=== PATIENT | female | born 1955 | race Caucasian/White ===

== ENCOUNTER 2016-11-25 06:10 | Day surgery (SDC) | payer OTHER ==
[2016-11-25] MEDS ORDERED: Citric Acid/Sodium Citrate Solution 30 ML Cup ONE (07:24)
[2016-11-25] MEDS ORDERED: Citric Acid/Sodium Citrate Solution 30 ML Cup PO ONE (07:25)
[2016-11-25] MEDS ORDERED: Lactated Ringers 1,000 ML IV SCH (07:45)
[2016-11-25] MEDS ORDERED: Propofol 200 MG/20 ML SDV ONE (07:46)
[2016-11-25] MEDS ORDERED: fentaNYL 100 MCG/2 ML SDV ONE (07:46)
[2016-11-25 08:59] VITALS: BP 104/47
--- NOTE | 2016-11-25 13:42 | OR ---
PREOPERATIVE DIAGNOSIS: Family history of colon cancer and polyps. POSTOPERATIVE DIAGNOSIS: Sigmoid diverticulosis. Otherwise normal exam. PROCEDURE PROPOSED: Total flexible colonoscopy. PROCEDURE DONE: Total flexible colonoscopy. INDICATION: This is a 61-year-old female who comes in for colonic surveillance due to a family history of her mother dying of colon cancer. She has had 2 prior exams and comes in about every 5 years. TECHNIQUE: The patient was brought to the endoscopy suite, placed in left lateral decubitus position. She was sedated per LABEL STITCHER with propofol. The flexible video colonoscope was then passed transanally and under visualization advanced to the cecum. Examination revealed a normal ascending, transverse, descending colon. Sigmoid colon revealed mild diverticulosis and the rectum was normal. The scope was withdrawn. The patient tolerated the procedure well. FINAL IMPRESSION: 1. Sigmoid diverticulosis. Otherwise normal exam. 2. Family history of colon cancer and polyps. PLAN: The patient is reassured. I felt she should continue with colonic surveillance every 5 years hereafter. SCM: 11/25/2016 08:08:58 MODL: 11/25/2016 13:37:41 /[id number]
== END 2016-11-25 09:30 | disposition home or self-care (01) ==
LOC: VM.SDS 06:10
PROVIDERS: ATTEND Surgery
DX: Z12.11 Encounter for screening for malignant neoplasm of colon (principal); K57.30 Diverticulosis of large intestine without perforation or abscess without bleeding; Z88.0 Allergy status to penicillin; Z88.1 Allergy status to other antibiotic agents; Z88.8 Allergy status to other drugs, medicaments and biological substances
CPT/HCPCS: 45378; 82962; A9270; J2704; J3010; J7120

== ENCOUNTER 2017-07-15 15:27 | Emergency (ER) | payer OTHER ==
--- NOTE | 2017-07-15 16:05 | EDM.PDOC ---
ED HPI GENERAL MEDICAL PROBLEM - General Chief Complaint: Genitourinary Problem Stated Complaint: UTI symptoms Time Seen by Provider: 07/15/17 15:29 Source of Information: Reports: Patient, RN, RN Notes Reviewed History Limitations: Reports: No Limitations - History of Present Illness INITIAL COMMENTS - FREE TEXT/NARRATIVE: Patient presents to the ED at [facility] with UTI symptoms. Patient states yesterday she started having dysuria with hematuria. Her symptoms have progressively gotten worse. Today she started having urgency. No abdominal or pelvic pain. No vaginal odor or discharge. Patient states she may only get 1-2 UTI's per year. No recent abx use. No recent cuadra catheter or other instrumentation. No calcium metabolism disorders. Patient states she is trying to stay well hydrated with good PO fluid intake. Onset Date: 07/14/17 - Related Data Allergies Allergy/AdvReac Type Severity Reaction Status Date / Time JIA Inhibitors Allergy Cannot Verified 07/15/17 16:05 Remember cephalexin Allergy Cannot Verified 07/15/17 16:05 Remember Penicillins Allergy Cannot Verified 07/15/17 16:05 Remember Home Meds: Home Meds Acetaminophen [Tylenol Extra Strength] 1 tab PO Q6H PRN 11/22/16 [History] Aspirin [Adult Low Dose Aspirin EC] 81 mg PO DAILY 11/22/16 [History] Calcium Carbonate [Tums] 1 tab PO DAILY PRN 11/22/16 [History] Ferrous Sulfate [Iron] 325 mg PO DAILY 11/22/16 [History] Levothyroxine Sodium 1 tab PO DAILY 11/22/16 [History] Magnesium Oxide [Magnesium] 1 tab PO DAILY 11/22/16 [History] Propylene Glycol/PEG 400/Pf [Systane Ultra 0.4-0.3% Eye Drp] 1 drop EYEBOTH Q4HR PRN 11/22/16 [History] Sertraline [Zoloft] 1 tab PO DAILY 11/22/16 [History] Simvastatin [Simvastatin] 1 tab PO DAILY 11/22/16 [History] Spironolactone [Spironolactone] 1 tab PO DAILY 11/22/16 [History] metFORMIN [Glucophage] 1 tab PO BID 11/22/16 [History] Cholecalciferol (Vitamin D3) [Vitamin D3] 1,000 units PO DAILY 11/25/16 [History ] Ibuprofen [Motrin] 400 mg PO Q6H PRN 11/25/16 [History] Nitrofurantoin Macrocrystal [Macrodantin] 1 tab PO BID 5 Days #10 capsule [Rx] Past Medical History HEENT History: Reports: Other (See Below) Other HEENT History: H/O Corneal injury Cardiovascular History: Reports: High Cholesterol, Hypertension Gastrointestinal History: Reports: GERD Musculoskeletal History: Reports: Osteoporosis Neurological History: Reports: Vertigo, Other (See Below) Other Neuro History: Trigeminal neurology Psychiatric History: Reports: Depression Endocrine/Metabolic History: Reports: Diabetes, Type II, Hypoparathyroidism, Multinodular Thyroid, Other (See Below) Other Endocrine/Metabolic History: Multiple thryoid nodules. Pituitary tumor benign. Rathkes cyst Hematologic History: Reports: Anemia, Iron Deficiency Dermatologic History: Reports: Other (See Below) Other Dermatologic History: Dermatitis - Past Surgical History GI Surgical History: Reports: Colonoscopy Social & Family History - Tobacco Use Smoking Status *Q: Never Smoker - Recreational Drug Use Recreational Drug Use: No ED ROS GENERAL - Review of Systems Review Of Systems: See Below Constitutional: Denies: Fever, Chills Respiratory: Denies: Shortness of Breath, Cough Cardiovascular: Denies: Chest Pain, Palpitations GI/Abdominal: Denies: Abdominal Pain, Nausea, Vomiting : Reports: Dysuria, Hematuria, Urgency Skin: Reports: No Symptoms Neurological: Reports: No Symptoms. Denies: Dizziness, Headache ED EXAM, RENAL/ - Physical Exam Exam: See Below Exam Limited By: No Limitations General Appearance: Alert, No Apparent Distress Respiratory/Chest: No Respiratory Distress, Lungs Clear, Normal Breath Sounds Cardiovascular: Normal Peripheral Pulses, Regular Rate, Rhythm GI/Abdominal: Normal Bowel Sounds, Soft, Non-Tender (Female) Exam: Deferred Neurological: Alert, Oriented Skin Exam: Warm, Dry, Intact, Normal Color, No Rash Course - Vital Signs Last Recorded V/S: Last Vital Signs Temp 35.7 C 07/15/17 16:03 Pulse 63 07/15/17 16:03 Resp 12 07/15/17 16:03 BP 144/54 H 07/15/17 16:03 Pulse Ox 99 07/15/17 16:03 - Orders/Labs/Meds Labs: Laboratory Tests 07/15/17 Range/Units 16:00 Urine Color Yellow (YELLOW) Urine Appearance Slightly cloudy H (CLEAR) Urine pH 6.0 (5.0-8.0) Ur Specific [place] 1.010 Urine Protein Negative (NEGATIVE) mg/dL Urine Glucose (UA) Negative (NEGATIVE) mg/dL Urine Ketones Negative (NEGATIVE) mg/dL Urine Occult Blood Trace-intact H (NEGATIVE) Urine Nitrite Negative (NEGATIVE) Urine Bilirubin Negative (NEGATIVE) Urine Urobilinogen 0.2 (0.2) EU/dL Ur Leukocyte Esterase Moderate H (NEGATIVE) Urine RBC 0-5 (NOT SEEN) /HPF Urine WBC 30-40 H (NOT SEEN) /HPF Ur Squamous Epith Cells Moderate H (NEGATIVE) /HPF Ur Transition Epith Cell Not seen (NEGATIVE) /HPF Ur Renal Epithelial Cell Few H (NEGATIVE) /HPF Urine Bacteria Moderate H (NEGATIVE) /HPF Urine Yeast (Budding) Few Departure - Departure Time of Disposition: 16:19 Disposition: Home, Self-Care 01 Condition: Good Clinical Impression: Urinary tract infection Qualifiers: Urinary tract infection type: acute cystitis Hematuria presence: with hematuria Qualified Code(s): N30.01 - Acute cystitis with hematuria - Discharge Information Prescriptions: Nitrofurantoin Macrocrystal [Macrodantin] 1 tab PO BID 5 Days #10 capsule Instructions: Urinary Tract Infection, Adult Referrals: Meg Willard MD [Primary Care Provider] - Forms: ED Department Discharge Additional Instructions: 1. Stay well hydrated and rest 2. Take antibiotics for the full coarse, even if you are feeling better 3. May try cranberry juice/pills for burning 4. See your Primary as symptoms warrant 5. Call with any questions/concerns - Problem List Review Problem List Initiated/Reviewed/Updated: Yes
[2017-07-15 16:07] VITALS: BP 144/54
[2017-07-15] MEDS ORDERED: Take Home: Nitrofurantoin Monohydrate/Macrocrystalline 100 MG, 2 Cap Pack PO ONE ×2 (16:21→16:25)
== END 2017-07-15 16:35 | disposition home or self-care (01) ==
LOC: VM.ED 15:27
DX: N30.01 Acute cystitis with hematuria (principal); I10 Essential (primary) hypertension; E78.00 Pure hypercholesterolemia, unspecified; E11.9 Type 2 diabetes mellitus without complications; Z88.0 Allergy status to penicillin; Z88.1 Allergy status to other antibiotic agents; Z79.82 Long term (current) use of aspirin; Z79.899 Other long term (current) drug therapy
CPT/HCPCS: 81001; 99283; A9270

== ENCOUNTER 2019-02-08 22:19 | Emergency (ER) | payer OTHER ==
[2019-02-08] MEDS ORDERED: GI Cocktail Oral Solution 30 ML PO ONE (22:45)
[2019-02-08] MEDS ORDERED: Aspirin 81 MG Tab.Chew PO ONE (22:45)
[2019-02-08 23:56] LABS: ANION GAP 13.3 mmol/L (10-20); CHLORIDE,CL 101 mmol/L (98-107); SODIUM,NA 138 mmol/L (136-145)
--- NOTE | 2019-02-08 23:59 | EDM.PDOC ---
ED HPI GENERAL MEDICAL PROBLEM - General Chief Complaint: Cardiovascular Problem Stated Complaint: PAIN IN THROAT AREA Time Seen by Provider: 02/08/19 22:42 Source of Information: Reports: Patient History Limitations: Reports: No Limitations - History of Present Illness INITIAL COMMENTS - FREE TEXT/NARRATIVE: Patient comes in with complaints of bilateral neck and chest pressure. She states this started at around 6 pm. States she had a burger for lunch around 12 noon today and part of a fish sandwich for dinner. Pain has improved before she arrived but states it is a 5/10 presently. Denies shortness of breath, abdominal pain, chills, fever, sweating, blood in urine or stools. No urinary symptoms. No change in LOC, no confusion, dizziness, fatigue. Onset: Today, Sudden Duration: Improving Location: Reports: Neck, Chest Quality: Reports: Burning, Pressure Severity: Moderate - Related Data Allergies Allergy/AdvReac Type Severity Reaction Status Date / Time JIA Inhibitors Allergy Cannot Verified 07/15/17 16:05 Remember cephalexin Allergy Cannot Verified 07/15/17 16:05 Remember Penicillins Allergy Cannot Verified 07/15/17 16:05 Remember Home Meds: Home Meds Acetaminophen [Tylenol Extra Strength] 1 tab PO Q6H PRN 11/22/16 [History] Aspirin [Adult Low Dose Aspirin EC] 81 mg PO DAILY 11/22/16 [History] Calcium Carbonate [Tums] 1 tab PO DAILY PRN 11/22/16 [History] Ferrous Sulfate [Iron] 325 mg PO DAILY 11/22/16 [History] Levothyroxine Sodium 1 tab PO DAILY 11/22/16 [History] Magnesium Oxide [Magnesium] 1 tab PO DAILY 11/22/16 [History] Propylene Glycol/PEG 400/Pf [Systane Ultra 0.4-0.3% Eye Drp] 1 drop EYEBOTH Q4HR PRN 11/22/16 [History] Sertraline [Zoloft] 1 tab PO DAILY 11/22/16 [History] Simvastatin 1 tab PO DAILY 11/22/16 [History] Spironolactone 1 tab PO DAILY 11/22/16 [History] metFORMIN [Glucophage] 1 tab PO BID 11/22/16 [History] Cholecalciferol (Vitamin D3) [Vitamin D3] 1,000 units PO DAILY 11/25/16 [History ] Ibuprofen [Motrin] 400 mg PO Q6H PRN 11/25/16 [History] Nitrofurantoin Macrocrystal [Macrodantin] 1 tab PO BID 5 Days #10 capsule [Rx] Past Medical History HEENT History: Reports: Other (See Below) Other HEENT History: H/O Corneal injury Cardiovascular History: Reports: High Cholesterol, Hypertension Gastrointestinal History: Reports: GERD Musculoskeletal History: Reports: Osteoporosis Neurological History: Reports: Vertigo, Other (See Below) Other Neuro History: Trigeminal neurology Psychiatric History: Reports: Depression Endocrine/Metabolic History: Reports: Diabetes, Type II, Hypoparathyroidism, Multinodular Thyroid, Other (See Below) Other Endocrine/Metabolic History: Multiple thryoid nodules. Pituitary tumor benign. Rathkes cyst Hematologic History: Reports: Anemia, Iron Deficiency Dermatologic History: Reports: Other (See Below) Other Dermatologic History: Dermatitis - Past Surgical History GI Surgical History: Reports: Colonoscopy Social & Family History - Family History Family Medical History: Noncontributory - Caffeine Use Caffeine Use: Reports: None ED ROS GENERAL - Review of Systems Review Of Systems: See Below Constitutional: Reports: No Symptoms HEENT: Reports: Throat Pain Respiratory: Reports: No Symptoms Cardiovascular: Reports: Chest Pain Endocrine: Reports: No Symptoms GI/Abdominal: Reports: No Symptoms : Reports: No Symptoms Musculoskeletal: Reports: No Symptoms Skin: Reports: No Symptoms Neurological: Reports: No Symptoms Psychiatric: Reports: No Symptoms Hematologic/Lymphatic: Reports: No Symptoms Immunologic: Reports: No Symptoms ED EXAM, GENERAL - Physical Exam Exam: See Below Exam Limited By: No Limitations General Appearance: Alert, WD/WN, No Apparent Distress Eye Exam: Bilateral Eye: EOMI, Normal Inspection, PERRL Ears: Normal TMs Nose: Normal Inspection, Normal Mucosa, No Blood Throat/Mouth: Normal Inspection, Normal Lips, Normal Teeth, Normal Gums, Normal Oropharynx, Normal Voice, No Airway Compromise Head: Atraumatic, Normocephalic Neck: Normal Inspection, Supple, Non-Tender, Full Range of Motion Respiratory/Chest: No Respiratory Distress, Lungs Clear, Normal Breath Sounds, No Accessory Muscle Use, Chest Non-Tender Cardiovascular: Normal Peripheral Pulses, Regular Rate, Rhythm, No Edema, No Gallop, No JVD, No Murmur, No Rub GI/Abdominal: Normal Bowel Sounds, Soft, Non-Tender, No Organomegaly, No Distention, No Abnormal Bruit, No Mass Back Exam: Normal Inspection, Full Range of Motion, NT Extremities: Normal Inspection, Normal Range of Motion, Non-Tender, Normal Capillary Refill, No Pedal Edema Neurological: Alert, Oriented, CN II-XII Intact, Normal Cognition, Normal Gait, Normal Reflexes, No Motor/Sensory Deficits Psychiatric: Normal Affect, Normal Mood Skin Exam: Warm, Dry, Intact, Normal Color, No Rash Lymphatic: No Adenopathy EKG INTERPRETATION EKG Date: 02/08/19 Time: 22:33 Rhythm: NSR Rate (Beats/Min): 85 [place]: Normal P-Wave: Present QRS: Normal ST-T: Normal QT: Normal Comparison: NA - No Prior EKG Course - Orders/Labs/Meds Orders: Active Orders 24 hr Category Date Time Status EKG 12 Lead [EKG Documentation Completion] [RC] STAT Care 02/08/19 22:46 Active Meds: Medications Discontinued Medications Generic Name Dose Route Start Last Admin Trade Name Blossom PRN Reason Stop Dose Admin Al Hydroxide/Mg Hydroxide 30 ml 02/08/19 22:45 Gi Cocktail PO 02/08/19 22:46 ONETIME ONE Aspirin 324 mg 02/08/19 22:45 Aspirin PO 02/08/19 22:46 ONETIME ONE - Re-Assessments/Exams Free Text/Narrative Re-Assessment/Exam: 02/09/19 00:02 Labs and EKG reviewed. Negative for ACS. Improvement after GI cocktail. Departure - Departure Time of Disposition: 00:06 Disposition: Home, Self-Care 01 Condition: Good Clinical Impression: Acid reflux Instructions: Food Choices for Gastroesophageal Reflux Disease, Adult, Gastroesophageal Reflux Disease, Adult, [id number] Referrals: Meg Willard MD [Primary Care Provider] - Forms: ED Department Discharge Additional Instructions: Plan 1. Follow up with your primary next week if you continue to have additional symptoms 2. Your EKG and labs tonight were negative for any heart damage or acute heart attack 3. This may be related to acid reflux. Try to eat lower grease/fat containing foods 4. Please call or return to the ED if your symptoms persist over the weekend or if you have any additional questions or concerns - Problem List & Annotations (1) Acid reflux SNOMED Code(s): 713645516 Code(s): K21.9 - GASTRO-ESOPHAGEAL REFLUX DISEASE WITHOUT ESOPHAGITIS Status: Acute Priority: Low Current Visit: Yes Qualifiers: Esophagitis presence: esophagitis presence not specified Qualified Code(s) : K21.9 - Gastro-esophageal reflux disease without esophagitis - Problem List Review Problem List Initiated/Reviewed/Updated: Yes - My Orders Last 24 Hours: My Active Orders 02/08/19 22:46 EKG 12 Lead [EKG Documentation Completion] [RC] STAT - Assessment/Plan Last 24 Hours: My Active Orders 02/08/19 22:46 EKG 12 Lead [EKG Documentation Completion] [RC] STAT Assessment:: acid reflux Plan: Plan 1. Follow up with your primary next week if you continue to have additional symptoms 2. Your EKG and labs tonight were negative for any heart damage or acute heart attack 3. This may be related to acid reflux. Try to eat lower grease/fat containing foods 4. Please call or return to the ED if your symptoms persist over the weekend or if you have any additional questions or concerns
[2019-02-09 00:39] VITALS: PULSE 82
[2019-02-09 00:40] VITALS: BP 151/71
== END 2019-02-09 00:05 | disposition home or self-care (01) ==
LOC: VM.ED 22:19
DX: K21.9 Gastro-esophageal reflux disease without esophagitis (principal); I10 Essential (primary) hypertension; E78.00 Pure hypercholesterolemia, unspecified; E11.9 Type 2 diabetes mellitus without complications; E20.9 Hypoparathyroidism, unspecified; Z88.0 Allergy status to penicillin; Z88.1 Allergy status to other antibiotic agents; Z88.8 Allergy status to other drugs, medicaments and biological substances
CPT/HCPCS: 36415; 80053; 82550; 83735; 84443; 84484; 85025; 85610; 93005; 99285; A9270

== ENCOUNTER 2021-12-02 06:51 | Day surgery (SDC) | payer MEDICARE ==
[~2021-12-02 06:51] MED LIST: Lactated Ringers 1,000 ML IV SCH; Sodium Chloride 0.9% 10 ML Syringe FLUSH PRN
[2021-12-02] MEDS ORDERED: Lactated Ringers 1,000 ML IV SCH (07:00)
[2021-12-02] MEDS ORDERED: Propofol 200 MG/20 ML SDV ONE (08:06)
[2021-12-02] MEDS ORDERED: fentaNYL 100 MCG/2 ML SDV ONE (08:06)
[2021-12-02 09:07] VITALS: BP 105/58; PULSE 65
== END 2021-12-02 10:05 | disposition home or self-care (01) ==
LOC: VM.SDS 06:51
PROVIDERS: ATTEND Family Medicine
DX: Z12.11 Encounter for screening for malignant neoplasm of colon (principal); K57.30 Diverticulosis of large intestine without perforation or abscess without bleeding; I10 Essential (primary) hypertension; E11.9 Type 2 diabetes mellitus without complications; K21.9 Gastro-esophageal reflux disease without esophagitis; E03.9 Hypothyroidism, unspecified; N18.31 Chronic kidney disease, stage 3a; I12.9 Hypertensive chronic kidney disease with stage 1 through stage 4 chronic kidney disease, or unspecified chronic kidney disease; D50.9 Iron deficiency anemia, unspecified; D53.1 Other megaloblastic anemias, not elsewhere classified; E78.2 Mixed hyperlipidemia; F33.0 Major depressive disorder, recurrent, mild; E04.1 Nontoxic single thyroid nodule; E23.6 Other disorders of pituitary gland; L82.1 Other seborrheic keratosis; G50.0 Trigeminal neuralgia; M85.89 Other specified disorders of bone density and structure, multiple sites; Z98.890 Other specified postprocedural states; Z80.0 Family history of malignant neoplasm of digestive organs; Z79.82 Long term (current) use of aspirin; Z79.899 Other long term (current) drug therapy; Z88.0 Allergy status to penicillin; Z86.018 Personal history of other benign neoplasm; Z86.011 Personal history of benign neoplasm of the brain; Z88.1 Allergy status to other antibiotic agents; Z88.8 Allergy status to other drugs, medicaments and biological substances; Z79.84 Long term (current) use of oral hypoglycemic drugs
CPT/HCPCS: 00812; 82947; G0105; J2704; J3010; J7120

== ENCOUNTER 2022-07-17 09:02 | Emergency (ER) | payer MEDICARE ==
[2022-07-17] MEDS: Take Home: predniSONE 20 MG, 2 Tab Pack PO ONE (09:46)
[2022-07-17] MEDS: hydrOXYzine HCl 25 MG Tab PO PRN (09:46)
[2022-07-17 10:16] VITALS: BP 136/72; PULSE 78
== END 2022-07-17 09:45 | disposition home or self-care (01) ==
LOC: VM.ED 09:02
DX: R21 Rash and other nonspecific skin eruption (principal); I12.9 Hypertensive chronic kidney disease with stage 1 through stage 4 chronic kidney disease, or unspecified chronic kidney disease; N18.30 Chronic kidney disease, stage 3 unspecified; E11.22 Type 2 diabetes mellitus with diabetic chronic kidney disease; E78.00 Pure hypercholesterolemia, unspecified; Z88.6 Allergy status to analgesic agent; Z88.1 Allergy status to other antibiotic agents; Z88.0 Allergy status to penicillin; Z79.899 Other long term (current) drug therapy; Z79.82 Long term (current) use of aspirin; Z79.84 Long term (current) use of oral hypoglycemic drugs
CPT/HCPCS: 99282; A9270-GY; J7512